=== PATIENT | male | born 1965 | race Caucasian/White ===

== ENCOUNTER 2018-10-29 16:15 | Outpatient (REF) | payer OTHER, SELFPAY ==
[2018-10-29 21:21] LABS: Anion Gap 10.5 mmol/L (3-11); BUN 14 mg/dL (7-18); CO2 26.5 mmol/L (21.0-32.0); CREATININE 0.88 mg/dL (0.70-1.30); Calcium 8.9 mg/dL (8.5-10.1); Chloride 101 mmol/L (98-107); Glucose 80 mg/dL (70-100); Potassium 4.1 mmol/L (3.5-5.1); Sodium 138 mmol/L (136-145)
== END 2018-10-29 16:35 ==
LOC: NCHCN 16:15
PROVIDERS: PCP Family Medicine; Visit Provider Registered Nurse
DX: I10 Essential (primary) hypertension (principal); H61.23 Impacted cerumen, bilateral
CPT/HCPCS: 80048

== ENCOUNTER 2019-04-15 17:14 | Outpatient (REF) | payer OTHER, SELFPAY ==
[2019-04-17 09:58] LABS: PSA, Screening 0.3 ng/ml (0-3.5)
== END 2019-04-15 17:34 ==
LOC: NCHCN 17:14
PROVIDERS: PCP Family Medicine; Visit Provider Registered Nurse
DX: Z12.5 Encounter for screening for malignant neoplasm of prostate (principal); Z80.42 Family history of malignant neoplasm of prostate
CPT/HCPCS: 84153

== ENCOUNTER 2020-02-21 15:07 | Outpatient (REF) | payer OTHER, SELFPAY ==
[2020-02-21 21:11] LABS: Anion Gap 9.7 mmol/L (3-11); BUN 16 mg/dL (7-18); CO2 25.3 mmol/L (21.0-32.0); CREATININE 1.07 mg/dL (0.70-1.30); Calcium 9.4 mg/dL (8.5-10.1); Chloride 104 mmol/L (98-107); Glucose 82 mg/dL (74-106); Potassium 4.2 mmol/L (3.5-5.1); Sodium 139 mmol/L (136-145)
== END 2020-02-21 15:27 ==
LOC: NCHCN 15:07
PROVIDERS: PCP Family Medicine; Visit Provider Registered Nurse
DX: I10 Essential (primary) hypertension (principal)
CPT/HCPCS: 80048

== ENCOUNTER 2020-05-06 19:05 | Outpatient (REF) | payer OTHER, SELFPAY ==
[2020-05-06 21:05] LABS: Calculated LDL 151 mg/dL (<100); Cholesterol 272 mg/dL (<200); HDL Cholesterol 54 mg/dL (40-60); Triglyceride 339 mg/dL (<150)
[2020-05-07 18:38] LABS: PSA, Screening 0.5 ng/mL (0.0-3.5)
== END 2020-05-06 19:25 ==
LOC: NCHCN 19:05
PROVIDERS: PCP Family Medicine; Visit Provider Registered Nurse
DX: Z00.00 Encounter for general adult medical examination without abnormal findings (principal); Z13.220 Encounter for screening for lipoid disorders; Z12.5 Encounter for screening for malignant neoplasm of prostate; Z80.42 Family history of malignant neoplasm of prostate
CPT/HCPCS: 80061; 84153

== ENCOUNTER 2021-09-24 18:27 | Outpatient (REF) | payer OTHER, SELFPAY ==
[2021-09-24 21:17] LABS: ALT 58 U/L (16-63); AST 24 U/L (15-37); Albumin 4.1 g/dL (3.4-5.0); Alkaline Phosphatase 73 U/L (46-116); Anion Gap 8.7 mmol/L (3-11); BUN 15 mg/dL (7-18); Bilirubin, Total 0.4 mg/dL (0.2-1.0); CO2 27.3 mmol/L (21.0-32.0); CREATININE 0.9 mg/dL (0.70-1.30); Calcium 9.2 mg/dL (8.5-10.1); Calculated LDL 145 mg/dL (<100); Chloride 101 mmol/L (98-107); Cholesterol 251 mg/dL (<200); Glucose 93 mg/dL (74-106); HDL Cholesterol 56 mg/dL (40-60); Potassium 4.3 mmol/L (3.5-5.1); Sodium 137 mmol/L (136-145); Total Protein 7.7 g/dL (6.4-8.2); Triglyceride 251 mg/dL (<150)
[2021-09-27 09:44] LABS: PSA, Screening 0.4 ng/mL (0.0-3.5)
== END 2021-09-24 18:28 | disposition home or self-care (01) ==
LOC: NCHCN 18:27
PROVIDERS: PCP Family Medicine; Visit Provider Registered Nurse
DX: I10 Essential (primary) hypertension (principal); E66.9 Obesity, unspecified; Z12.5 Encounter for screening for malignant neoplasm of prostate; Z80.42 Family history of malignant neoplasm of prostate
CPT/HCPCS: 80053; 80061; 84153

== ENCOUNTER 2022-10-07 12:55 | Outpatient (REF) | payer OTHER, SELFPAY ==
[2022-10-07 14:45] LABS: ALT 54 U/L (16-63); AST 36 U/L (15-37); Albumin 4.1 g/dL (3.4-5.0); Alkaline Phosphatase 68 U/L (46-116); BUN 17 mg/dL (7-18); Bilirubin, Total 0.7 mg/dL (0.2-1.0); CREATININE 0.9 mg/dL (0.70-1.30); Calcium 9.8 mg/dL (8.5-10.1); Calculated LDL 164 mg/dL (<100); Chloride 101 mmol/L (98-107); Cholesterol 263 mg/dL (<200); Estimated GFR 100.24 (mL/min/1.73m2); Glucose 94 mg/dL (74-106); HDL Cholesterol 68 mg/dL (40-60); Potassium 4.5 mmol/L (3.5-5.1); Sodium 137 mmol/L (136-145); Total Protein 7.9 g/dL (6.4-8.2); Triglyceride 159 mg/dL (<150)
[2022-10-07 15:52] LABS: Hemoglobin A1C 5.5 % (<5.7)
[2022-10-07 19:56] LABS: PSA, Screening 0.5 ng/mL (<=3.5)
[2022-10-11 15:32] LABS: Hepatitis C Ab w Rflx HCV PCR Negative (Negative)
== END 2022-10-07 12:56 | disposition home or self-care (01) ==
LOC: NCHCN 12:55
PROVIDERS: PCP Family Medicine; Visit Provider Registered Nurse
DX: I10 Essential (primary) hypertension (principal); E66.8 Other obesity; Z12.5 Encounter for screening for malignant neoplasm of prostate; Z80.42 Family history of malignant neoplasm of prostate; Z11.59 Encounter for screening for other viral diseases; Z13.1 Encounter for screening for diabetes mellitus
CPT/HCPCS: 80053; 80061; 84153; 86803; 83036

== ENCOUNTER 2023-04-07 18:31 | Outpatient (REF) | payer OTHER, SELFPAY ==
[2023-04-07 22:04] LABS: Anion Gap 9.5 mmol/L (3-11); BUN 19 mg/dL (7-18); CO2 26.5 mmol/L (21.0-32.0); CREATININE 1.1 mg/dL (0.70-1.30); Calcium 9.3 mg/dL (8.5-10.1); Chloride 103 mmol/L (98-107); Estimated GFR 78.79 (mL/min/1.73m2); Glucose 99 mg/dL (74-106); NT-proBNP 26 pg/mL (<300); Potassium 4.3 mmol/L (3.5-5.1); Sodium 139 mmol/L (136-145); TSH (W/Ref FT4) 4.27 uIU/mL (0.36-3.74)
[2023-04-07 22:45] LABS: FREE T4 0.93 ng/dL (0.76-1.46)
== END 2023-04-07 18:32 | disposition home or self-care (01) ==
LOC: NCHCN 18:31
PROVIDERS: PCP Family Medicine; Visit Provider Registered Nurse
DX: R94.6 Abnormal results of thyroid function studies (principal); R60.0 Localized edema; I10 Essential (primary) hypertension
CPT/HCPCS: 80048; 83880; 84439; 84443